=== PATIENT | male | born 1980 | race Caucasian/White ===

== ENCOUNTER 2017-09-06 20:00 | Emergency (ER) | payer OTHER ==
[~2017-09-06] VITALS: Ht 188 cm; Wt 126.1 kg
[~2017-09-06 20:00] MED LIST: HYZAAR 100-121 UDTAB; NORVASC5 MG PO; OSEL75CA PO; PNEU16DI2; TENORMIN50 MG PO
== END 2017-09-06 22:49 | disposition home or self-care (01) ==
LOC: ER 20:00
DX: B34.9 Viral infection, unspecified (principal)

== ENCOUNTER 2018-12-06 11:19 | Emergency (ER) | payer OTHER ==
[~2018-12-06] VITALS: Ht 188 cm; Wt 181.4 kg
[2018-12-06] MEDS ORDERED: TENORMIN25 MG PO (11:32)
[2018-12-06] MEDS ORDERED: METFORMIN HCL750 MG PO (11:33)
[2018-12-06] MEDS ORDERED: ALBUTEROL0.63 MG/3 IH (11:34)
[2018-12-06] MEDS ORDERED: CLARITIN10 M2 PO (11:34)
[2018-12-06] MEDS ORDERED: SINGULAIR 10MG10 MG PO (11:34)
[2018-12-06] MEDS ORDERED: AMOX1TAB5 PO (11:35)
== END 2018-12-06 14:30 | disposition home or self-care (01) ==
LOC: ER 11:19
DX: J45.998 Other asthma (principal)

== ENCOUNTER → 2019-04-13 | Emergency (ER) | payer OTHER ==
[~2019-04-13] VITALS: Ht 188 cm; Wt 176.9 kg
[~2019-04-13] MED LIST changes: +ALBUTEROL0.63 MG/3 IH; +AMOX1TAB5 PO; +CLARITIN10 M2 PO; +METFORMIN HCL750 MG PO; +SINGULAIR 10MG10 MG PO; +TENORMIN25 MG PO
== END | disposition home or self-care (01) ==
LOC: ER 21:17
DX: K62.89 Other specified diseases of anus and rectum (principal)

== ENCOUNTER 2020-04-24 03:30 | Emergency (ER) | payer OTHER ==
[~2020-04-24] VITALS: Ht 188 cm; Wt 176.4 kg
[2020-04-25] MEDS ORDERED: ACETAMINOPHEN650 M2 PO (18:59)
[2020-04-25] MEDS ORDERED: PROTONIX20 MG PO (19:02)
== END 2020-04-24 07:55 | disposition home or self-care (01) ==
LOC: ER 03:30
DX: N39.0 Urinary tract infection, site not specified (principal)

== ENCOUNTER 2020-04-25 13:40 | Emergency (ER) | payer OTHER ==
[~2020-04-25] VITALS: Ht 188 cm; Wt 176.9 kg
[2020-04-25] MEDS ORDERED: ACETAMINOPHEN650 M2 PO (18:59)
[2020-04-25] MEDS ORDERED: PROTONIX20 MG PO (19:02)
== END 2020-04-25 19:41 | disposition home or self-care (01) ==
LOC: ER 13:40
DX: N39.0 Urinary tract infection, site not specified (principal); A90 Dengue fever [classical dengue]; B34.9 Viral infection, unspecified; Z03.818 Encounter for observation for suspected exposure to other biological agents ruled out

== ENCOUNTER 2021-04-23 07:18 | Outpatient (CLI) | payer OTHER ==
[~2021-04-23 07:18] MED LIST changes: +ACETAMINOPHEN650 M2 PO; +PROTONIX20 MG PO
== END 2021-04-23 07:21 | disposition home or self-care (01) ==
LOC: NUCLEAR 07:18
PROVIDERS: ATTEND General Practice
DX: I50.1 Left ventricular failure, unspecified (principal); I25.9 Chronic ischemic heart disease, unspecified; R06.2 Wheezing; I10 Essential (primary) hypertension; E66.01 Morbid (severe) obesity due to excess calories
CPT/HCPCS: 78452; 93017; A9500

== ENCOUNTER 2021-04-27 21:09 | Emergency (ER) | payer OTHER ==
[~2021-04-27] VITALS: Ht 157.5 cm; Wt 166.9 kg
[2021-04-28] MEDS ORDERED: ZITHROMAX500 MG PO (01:29)
[2021-04-28] MEDS ORDERED: DOLOGEN CAPLET1 EACH PO (01:29)
[2021-04-28] MEDS ORDERED: TUSNEL LIQUID178 ML PO (01:29)
== END 2021-04-28 01:38 | disposition home or self-care (01) ==
LOC: ER 21:09
DX: U07.1 COVID-19 (principal); J45.998 Other asthma; I10 Essential (primary) hypertension; E11.9 Type 2 diabetes mellitus without complications; Z79.84 Long term (current) use of oral hypoglycemic drugs

== ENCOUNTER 2021-05-01 04:07 | Emergency (ER) | payer OTHER ==
[~2021-05-01] VITALS: Ht 188 cm; Wt 164.2 kg
[~2021-05-01 04:07] MED LIST changes: +DOLOGEN CAPLET1 EACH PO; +TUSNEL LIQUID178 ML PO; +ZITHROMAX500 MG PO
[2021-05-01] MEDS ORDERED: ZYNCOF 20-400120 ML PO (06:32)
[2021-05-01] MEDS ORDERED: XOPENEX0.63 MG/3 IH (06:32)
== END 2021-05-01 06:42 | disposition home or self-care (01) ==
LOC: ER 04:07
DX: F06.4 Anxiety disorder due to known physiological condition (principal)

== ENCOUNTER 2021-11-06 12:35 | Outpatient (CLI) | payer OTHER ==
[~2021-11-06 12:35] MED LIST changes: +XOPENEX0.63 MG/3 IH; +ZYNCOF 20-400120 ML PO
== END 2021-11-06 12:45 | disposition home or self-care (01) ==
LOC: TOM 12:35
PROVIDERS: ATTEND General Practice
DX: J32.3 Chronic sphenoidal sinusitis (principal); J01.90 Acute sinusitis, unspecified; R09.81 Nasal congestion

== ENCOUNTER 2023-12-30 10:17 | Outpatient (CLI) | payer OTHER ==
[~2023-12-30 10:17] MED LIST changes: +ACTOS15 MG; +ANUSOL-HC25 MG RECTAL; +LOSARTAN-HCTZ1 EACH PO; +MELOXICAM15 MG PO; +OZEMPIC2 MG/0.75
[2024-01-17] MEDS ORDERED: GLUMETZA1000 MG (01:56)
== END 2023-12-30 10:18 | disposition home or self-care (01) ==
LOC: NUCLEAR 10:17
PROVIDERS: ATTEND Internal Medicine Cardiovascular Disease
DX: R01.2 Other cardiac sounds (principal); I10 Essential (primary) hypertension

== ENCOUNTER → 2024-01-17 | Emergency (ER) | payer OTHER ==
[~2024-01-17] VITALS: Ht 188 cm; Wt 168.7 kg
[~2024-01-17] MED LIST changes: +GLUMETZA1000 MG
== END | disposition left against medical advice (07) ==
LOC: ER 01:42
DX: Z53.21 Procedure and treatment not carried out due to patient leaving prior to being seen by health care provider (principal)